=== PATIENT | male | born 1995 | race Native Hawaiian/Other Pacific Islander ===

== ENCOUNTER 2019-12-03 17:23 | Emergency (ER) | payer OTHER ==
[~2019-12-03] VITALS: Ht 188 cm; Wt 97.5 kg
[2019-12-03 17:34] VITALS: BP 171/98; TEMP 98.2
== END 2019-12-03 18:27 | disposition home or self-care (01) ==
LOC: ED 17:23
DX: M89.8X8 Other specified disorders of bone, other site (principal)
CPT/HCPCS: 99283; J1885